=== PATIENT | female | born 1940 | race Caucasian/White ===

== ENCOUNTER 2023-06-01 12:31 | Outpatient (CLI) | payer MEDICARE, BC, SELFPAY | END 2023-06-01 12:32 | disposition home or self-care (01) | LOC: NFLDREF 06-03 14:40 | PROVIDERS: Visit Provider Physician Assistant | DX: R30.0 Dysuria (principal); N39.0 Urinary tract infection, site not specified | CPT/HCPCS: 87086; 87186 ==

== ENCOUNTER 2024-12-26 14:15 | Outpatient (CLI) | payer MEDICARE, BC, SELFPAY | END 2024-12-26 14:16 | disposition home or self-care (01) | PROVIDERS: PCP Physician Assistant Medical; Visit Provider Physician Assistant Medical | DX: E78.5 Hyperlipidemia, unspecified (principal); E03.9 Hypothyroidism, unspecified | CPT/HCPCS: 80053; 80061; 84439; 84443 ==

== ENCOUNTER 2025-02-09 10:15 | Outpatient (RCR) | payer MEDICARE, BC, SELFPAY ==
--- NOTE | 2025-01-04 17:11 | PT.OPE ---
PT [facility] PT [facility] Eval Start: 01/04/25 11:48 Freq: Status: Active Protocol: Document 01/04/25 13:37 LSL (Rec: 01/04/25 14:47 LSL [id number]) E-signed By Dayna Hackett PT Physical Therapy Outpatient Evaluation Insurance Information Recert Due Date 04/04/25 Insurance Name Medicare B,Blue Cross/Blue Shield Medical Diagnosis R shoulder pain Treating Diagnosis impaired ROM, weakness, pain Imaging Report Information xray Findings: : Narrowing and spurring at the glenohumeral joint with subchondral reactive changes. Inferior pseudosubluxation of the humeral head in relation to the glenoid noted. No acute fracture. 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 Subjective Subjective Pt. reports she fell about 3 years ago and hurt her knee but not long after she began having R shoulder pain. She is right hand dominant. Pt. reports she has a constant ache in her R lateral shoulder . Pt. is unable to use her arm to brush her hair and has difficulty getting dressed and difficulty getting her seat belt on. She has tried tylenol , heat and ice in the past without relief. Pain Comments 7/10 best 9/10 worst Date of Last Physician Visit 12/29/24 Date of Next Physician Visit 01/05/25 Current Work Status Retired Precautions Therapy Limitations/Systems Review Other Medical Problem Objective Range of Motion AROM L R PROM flex 130 107 133 abd 154 52 83 IR (HBB) T6 lateral hip 63 ER 78 70 (not in full abducted position) 60 Strength L shoulder and elbow 4-5/5 R elbow 5/5, shoulder ER 4-/5 with pain, IR 5/5 (both with clunk), abduction 3-/5, supraspinatus 3/5, deltoid 3/5 , hor abd 4/5, hor add 3/5 with pain Palpation R bicep, pec and coracoid process tender, very tender in scalenes, UT, LS Posture Forward head and protracted scapulae Other/Pertinent Objective Cervical distraction and L LF feel good JOINT PLAY - gd 1 inferior glides and LAD increase pain in the R cervical area and posterior glides also reproduce some pain in the superior shoulder Assessment Assessment/Impression Pt. presents today with her granddaughter, who she is currently living with. She has a significant loss of abduction and rotation in her R shoulder with moderate weakness in abduction, ER and horizontal adduction. There is significant clunking in both active and passive ROM indicative of a severely arthritic joint that is lacking stability. She has an initial appointment with orthopedics tomorrow. Treatment will consist of manual therapy and therex to improve strength and ROM of the R shoulder. NM re-ed and modalities may be used to assist in her ability to complete therex. Primary Functional Limitations grooming, bathing, hooking seat belt, dressing, reaching, lifting, carrying Plan of Care Rehabilitation Potential Good Physical Therapy Goals SHORT TERM GOALS: (4 weeks) 1. Pt. able to participate in basic HEP. 2. Pt. to have PROM abduction to 100+ degrees. 3. Pt. able to reach L5-S1 in hand behind back. 4. Pt. to report pain 5/10 or less in daily activities. 5. Pt. able to tolerate bra straps on her shoulders. SENIOR CARE GOALS: (8+ weeks) 1. Pt. able to do grooming tasks with pain less than 3/10 . 2. Pt. able to hook her seat belt with ease. 3. Pt. able to lift an item out of the fridge with pain less than 3/10. Coordination/Communication With Referral Source Treatment Plan/Direct Interventions Electrical Stimulation,Joint Mobilization,Manual Therapy, Neuromuscular Re-ed, Therapeutic Exercises Frequency/Duration 1-2x/week 6-8 weeks Patient Will Be Discharged From Therapy Completion of LTG(s),Skills Plateau,Independent w/HEP, Independently Progressing Evaluation Billing Untimed Code Treatment Minutes 30 Complexity Low Certification Information Initial Certification Date 01/04/25 Ending Certification Date 04/04/25 Provider Signature Required Yes Provider Signature Shows Agreement With POC & Medical Necessity Physician NPI Number Write NPI# Here Physician Comment/Change : Physician Signature & Date Requested Please Sign/Date Here
== END 2025-04-12 15:40 | disposition home or self-care (01) ==
PROVIDERS: PCP Physician Assistant Medical; Visit Provider Physician Assistant Medical
DX: Z47.1 Aftercare following joint replacement surgery (principal); Z96.611 Presence of right artificial shoulder joint; M25.511 Pain in right shoulder; M25.551 Pain in right hip; Z51.89 Encounter for other specified aftercare
CPT/HCPCS: 97032; 97110; 97140; 97161

== ENCOUNTER 2025-02-24 12:38 | Outpatient (CLI) | payer MEDICARE, BC, SELFPAY ==
--- OUTSIDE RECORDS SUMMARY | 2025-02-25 00:17 | XMS_ITS | Encounter Summary ---
Author Organization [facility] Address [address] [place] [address] Care Team Providers Care Electrician Wiring Name Role Phone Eliana Malloy MD Primary Care Provider Encounter Details Date Type Department Care Team (Late st Contact Info) Description 02/02/2025 E-Visit [facility] Family Medicine [address] [place] [address] [place] [address] Social History Tobacco Use Types Packs/Day Years Used Date Smoking Tobacco: Never Passive Smoke Exposure: Never Smokeless Tobacco: Never Alcohol Use Standard Drinks/Week Comments Yes 0 (1 standard drink = 0.6 oz pur e alcohol) daily-2 glasses [facility] Utilities Answer Date Recorded In the past 12 months has Epuls, gas, oil, or water [employer] threatened to shut off services in your home? No 02/27/2024 Humiliation, Afraid, Rape, and Kick questionnair e Answer Date Recorded Fear of Current or Ex-Partner Not on file Within the last year, have y ou been humiliated or emotionally abused in other ways by your partner or ex-partner? No 02/27/2024 Within the last year, have y ou been kicked, hit, slapped, or otherwise physically hurt by your partner or ex-partner? No 02/27/2024 Within the last year, have y ou been raped or forced to have any kind of sexual activity by your partner or ex-partner? No 02/27/2024 AUDIT-C Answer Date Recorded Q1: How often do you have a drink containing alc ohol? 2-4 times a month 06/13/2021 Q2: How many drinks containi ng alcohol do you have on a typical day when you are drinking? 1 or 2 06/13/2021 Q3: How often do you have si x or more drinks on one occasion? Never 06/13/2021 PHQ-2 Answer Date Recorded PHQ-2 Score 3 10/19/2023 Exercise Vital Sign Answer Date Recorde d On average, how many days pe r week do you engage in moderate to strenuous exercise (like a brisk walk)? 0 days 06/13/2021 On average, how many minutes do you engage in exercise at this level? 0 min 06/13/2021 Hunger Vital Sign Answer Date Recorded Within the past 12 months, y ou worried that your food would run out before you got the money to buy more. Never true 02/27/20 24 Within the past 12 months, t he food you bought just didn't last and you didn't have money to get more. Never true 02/27/2024 PRAPARE - Transportation Answer Date Re corded In the past 12 months, has l ack of transportation kept you from medical appointments or from getting medications? No 02/06 In the past 12 months, has l ack of transportation kept you from meetings, work, or from getting things needed for daily living? No 02/27/2024 Housing Stability Vital Sign Answer Florentin e Recorded In the last 12 months, was t here a time when you were not able to pay the mortgage or rent on time? No 02/27/2024 In the last 12 months, how many places have you lived? 1 02/27/2024 In the last 12 months, was t here a time when you did not have a steady place to sleep or slept in a detention (including now)? 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
--- OUTSIDE RECORDS SUMMARY | 2025-02-25 00:17 | XMS_ITS | Encounter Summary ---
Author Organization [facility] Address [address] [place] [address] Care Team Providers Care Educational Guidance Counselor Name Role Phone Eliana Malloy MD Primary Care Provider Encounter Details Date Type Department Care Team (Late st Contact Info) Description 05/08/2021 Stock Patcher Only CONVERSION CONVERSION Guicho Leiva MD CONV OF DATA PN TO [facility] Social History Tobacco Use Types Packs/Day Years Used Date Smoking Tobacco: Never Smokeless Tobacco: Never Alcohol Use Standard Drinks/Week Comments Yes 0 (1 standard drink = 0.6 oz pur e alcohol) daily-2 glasses Comments No Sex and Gender Information Value Date Recorded Sex Assigned at Female 02/28/2024 5:18 AM CDT 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 Location: Left;Hip [REMOVED] Peripheral IV Catheter 10/08/17 Left;Outer forearm Removal Date/Time: (c) 01/16/21 0720 Placement Date/Time: 10/08/17 0235 Line site: Left;Outer forearm Line Size: 22 gauge Catheter length: Standard Dressing/Device: Transparent [REMOVED] Incision Right Hip 10/07/17 Resolved/Resolved time: 10/16/17 1733 Date of Incision/Time first assessed: 10/07/17 1121 Lateraility: Right Incision location: Hip [REMOVED] Indwelling Urethral Catheter 10/07/17 Removal Date/Time: 10/08/17 1348 Placement Date/Time: 10/07/17 1052 Reason for urinary catheter insertion: Large volume infusions during surgery / diuretics first 24 hours after surgery Type: Non-latex Size (portuguese): 16 Fr Balloon size: 10 ml A... [REMOVED] Peripheral IV Catheter 10/07/17 Left;Hand Removal Date/Time: 10/08/17 0230 Placement Date/Time: 10/07/17 0956 Line site: Left;Hand Line Size:20 gauge Catheter length: Standard Dressing/Device: Transparent Local anesthetic: Injectible Reasonfor removal: Removed by patient Removal as... documented in this encounter Plan of Treatment Not on file documented as of this encounter Visit Diagnoses Not on filedocumented in this encounter Additional Health Concerns Infection Onset Date Last Indicated Resolved Time R/O COVID19 07/09/2021 07/09/2021 07/09/2021 8:09 PM CDT documented as of this encounter Care Teams Educational Guidance Counselor Relationship Specialty Start Date End Date Eliana Malloy MD [address] [place] [id number] PCP - General Family Practice 02/03/23 documented as of this encounter
--- OUTSIDE RECORDS SUMMARY | 2025-02-25 00:17 | XMS_ITS | Clinical Summary ---
Author Organization [facility] Address [address] [place] [address] Care Team Providers Care Clinical Trials Specialist Name Role Phone Eliana Malloy MD Primary Care Provider Source Comments You are receiving this document as you are listed as the primary care provider,follow-up provider, or the patient has been referred to you for consultation.This is in compliance with the Medicare and[facility] EHR Incentive Program,which states Providers who transition their patient to another setting of careor provider of care or refers their patient to another provider of care shouldprovide summary care record for each transition of care or referral. [facility] Allergies No known active allergies Medications cyanocobalamin (VITAMIN B12) 1000 MCG tabletIndications: Vitamin B12 Deficiency Take 1 Tablet (1,000 mcg) by mouth daily. Indications: Inadequate Vitamin B12 90 Tablet 1 4 Active escitalopram (LEXAPRO) 10 MG tablet Take 1 Tablet (10 mg) by mouth daily. 30 Tablet 5 Active levothyroxine (SYNTHROID) 125 MCG tablet Take 1 Tablet (125 mcg) by mouth daily. 30 Tablet 5 Active rosuvastatin (CRESTOR) 10 MG tabletIndications: Hyperlipidemia, unspecified hyperlipidemia type (HRC) Take 1 Tablet (10 mg) by mouth daily. 30 Tablet Active Hospital, Clinic, or Other Facility Administered Medication Ordered Dose Route Frequency Start Date End Date Status cyanocobalamin ([id number]) injection 1,000 mcgIndications:Vitamin B12 deficiency (HRC) 1000 mcg IM MONTHLY 03/08/2024 02/07/2025 Ended Active Problems Problem Noted Date Diagnosed Date Vitamin B12 deficiency 02/29/2024 Moderate dementia without be havioral disturbance, psychotic disturbance, mood disturbance, or anxiety 02/29/2024 General weakness 02/27/2024 Metabolic encephalopathy 02/27/2024 Closed fracture of right tibial plateau 07/09/20 21 Fall 07/09/2021 Leucocytosis 07/09/2021 H/O total hip arthroplasty, left 01/19/2021 Arthritis of left hip 01/16/2021 Perleche 10/29/2018 Status post total hip replacement, right 018 Arthritis of right hip 10/07/2017 Reactive depression 09/10/2017 Hyperlipidemia 09/10/2017 Pernicious anemia 07/09/2016 Acquired hypothyroidism 06/17/2016 Depression Hypothyroidism B12 deficiency anemia Resolved Problems Problem Noted Date Diagnosed Date Resolved Date Acute respiratory failure with hypoxia 02/27/2024 02/28/2024 UTI (urinary tract infection) 07/09/2021 01/07/2022 Dehydration 07/09/2021 01/07/2022 Encounters Date Type Department Care Team Description 02/02/2025 E-Visit [facility] [address] [facility] [place] [id number] Mychart, Generic Provider 12/15/2024 3:00 PM CDT E-Visit [facility] [address] [facility] [place] [phone] Eliana Malloy MD Dx: Hyperlipidemia, unspecified hyperlipidemia type (HRC) from Last 3 Months Immunizations Immunization Administration Dates Next Due Flu Vac (3+ yrs) 06/14/2013,09/16/2012, 8 Flu Vac Preserv Free (3+yrs) 07/18/2011,05/23/20 10 [id number] 09/20/2009 Influenza ([place] Only) (Flul aval Quad 0.5, 3+ yrs) 05/31/2014 Influenza IIV3 (Trivalent) F nati Highdose, 65+ Yrs (90908) 07/21/2019,06/25/2018 Influenza IIV4 (Quadrivalent ) 0.5mL (30538) 07/18/2015,05/31/2014 Influenza IIV4 (Quadrivalent ) Fluad, 65+ Yrs 06/13/2021,07/09/2020 Influenza IIV4 (Quadrivalent ) Fluzone, 65+ Yrs 07/21/2019,06/25/2018 Influenza ccIIV3 6 months+ (Flucelvax) 07/09/2020,07/18/2015 PCV13 (Prevnar) 01/18/2015 PPSV23 (Pneumovax) 01/18/2009,09/07/2008, 005 Pfizer Monovalent 12+ Purple Top 021,11/22/2020,11/22/2020,2020,11/01/2020 Td 03/24/2014,12/17/2001 Td, Preservative Free 03/24/2014,12/17/2001 Tdap 09/14/2023 Zoster (Zostavax) 01/18/2009,09/07/2008 Family History Medical History Relation Name Comments Alcohol Abuse Father Cancer, Colon Father Other Father Tobacco abuse Stroke Father Mental Disorder Mother anxious Other Mother pulmonary disea se Cancer, Prostate Brother 2 No Known Problems Daughter 2 Crohn's Disease Sister 2 Liver Disease Son 2 cirrhosis Kidney Disorder Son 3 Relation Name Status Comments Father Mother Brother 1 Alive Brother 2 Daughter 1 Alive Daughter 2 Maternal Grandfather Maternal Grandmother Paternal Grandfather Paternal Grandmother Sister 1 Alive Sister 2 Son 1 Son 2 Son 3 Social History Tobacco Use Types Packs/Day Years Used Date Smoking Tobacco: Never Passive Smoke Exposure: Never Smokeless Tobacco: Never Tobacco Cessation:Counseling Given: Not Answered Alcohol Use Standard Drinks/Week Comments Yes 0 (1 standard drink = 0.6 oz pur e alcohol) daily-2 glasses Nextt Utilities Answer Date Recorded In the past 12 months has e electric, gas, oil, or water company threatened to shut off services in your [...] place to sleep or slept in a alf (including now)? 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 Gender Identity Female 02/28/2024 5:18 AM CDT Sexual Orientation Not on file Last Filed Vital Signs Vital Sign Reading Time Taken Comments Blood Pressure 128/70 03/08/2024 10:49 AM CDT Pulse 83 03/08/2024 10:49 AM CDT Temperature 36.4 C (97.5 F) 03/08/2024 10:49 AM CDT Respiratory Rate 16 03/01/2024 7:00 AM CDT Oxygen Saturation 100% 03/08/2024 10:49 AM CDT Inhaled Oxygen Concentration - - Weight 73.5 kg (162 lb) 03/08/2024 10:49 AM CDT Height 162.6 cm (5' 4) 02/29/2024 2:05 PM CDT Body Mass Index 27.81 02/29/2024 2:05 PM CDT Plan of Treatment Health Maintenance Due Date Last Done Comments Zoster/Shingles Vaccine (2 of 3) 03/15/2009 01/18/2009, 09/07/2008 RSV Vaccine (1 - 1-dose 75+ series) 2014 Colonoscopy 01/28/2015 01/29/2012 (Completed) COVID-19 Vaccine ( season) 2024 07/24/2021, 11/22/2020, 11/22/2020, Additional history exists Medicare Annual Wellness Visit 09/14/2024 09/14/2023, 05/07/2020 Influenza Vaccine (Season Ended) 2025 06/13/2021, 07/09/2020, 07/09/2020, Additional history exists Dexa 09/14/2025 09/14/2023, 04/2024, 01/21/2011, Additional history exists DTaP/Tdap/Td Vaccine (2 - Tdap) 09/14/2033 09/14/2023, 03/24/2014, 03/24/2014, Additional history exists Pneumococcal Vaccine 50+ Yrs Completed , 01/18/2009, 09/07/2008, Additional history exists HepA Vaccine Aged Out No longer eligi ble based on patient's age to complete this topic HepB Vaccine Aged Out No longer eligi ble based on patient's age to complete this topic Hib Vaccine Aged Out No longer eligi ble based on patient's age to complete this topic MCV4 Vaccine Aged Out No longer eligi ble based on patient's age to complete this topic Meningococcal B Vaccine Aged Out No l onger eligible based on patient's age to complete this topic Medical Devices Implanted Type Area Information Systems Specialist Device Identifier Shelf Expiration Date Model / Serial / Lot Etex Beta-Bsm 5c #[id number] Implanted:Qty : 1 on 07/17/2021 by Christiano Prieto MD at [facility] DEVICE Right: KNEE Etex Umm 02/01/2023 [id number] / NA / [id number] Scr Cole Canc 4.0x70 P-Thrd - [id number] Implanted:Qty : 3 on 07/17/2021 by Christiano Prieto MD at [facility] DEVICE Right: KNEE [employer] - Trauma [id number] / / Scr Cole Canc 4.0x65 P-Thrd - [id number] Implanted:Qty : 1 on 07/17/2021 by Christiano Prieto MD at [facility] DEVICE Right: KNEE [employer] - Trauma [id number] / / Drill Bit Cole 2.9x70 Disp - [id number] Implanted:Qty : 1 on 07/17/2021 by Christiano Prieto MD at [facility] DEVICE Right: K[employer] - Trauma [id number] / / Etex Gamma-Bsm 2.5cc #[id number] Implanted:Qty : 2 on 07/17/2021 by Christiano Prieto MD at [facility] Right: KNEE Etex Umm 11/17/2023 [id number] / / [id number] Procedures Procedure Name Priority Date/Time Associated Diagnosis Comments DXA BONE DENSITY SPINE/HIP Routine 09/14/2023 12:18 PM SHOP SUPERVISOR Annual physical exam Screening for osteoporosis Postmenopausal from Last 3 Months or Most Recently Relevant to Health Maintenance Results * DXA Bone Density Spine/Hip (09/14/2023 12:18 PM SHOP SUPERVISOR) DXA Lumbar Spine Bone Mineral Density 1.183 gm/cm2 EXTERNAL RESULTS DXA Lumbar Spine T-Score 0.1 EXTERNAL RESULTS DXA Lumbar Spine Z-Score 1.4 EXTERNAL RESULTS DXA Forearm Bone Mineral Density 0.327 gm/cm2 EXTERNAL RESULTS DXA Forearm T-Score -5.4 EXTERNAL RESULTS DXA Forearm Z-Score -2.2 EXTERNAL RESULTS Anatomical Region Laterality Modality Lower Extremity, Spine, Hip, L-Spine Other Narrative 09/17/2023 8:44 AM SHOP SUPERVISOR Table formatting from the original result was not included. Patient Name: Lesley Newell Densitometer: [employer] DF Appt Dept/Resource: [place] Bone Density [place] DXA Demographics Age: 83 y.o. Gender: Female Height: 5' 4 (1.626 m) Height at age 24: 5'5 Weight: 185 lb (83.9 kg) Race: Medical/Surgical History Menstrual periods: None Age of menopause: 44 Able to stand from a chair easily without use of the arms?: Yes, easily How many falls indoors/outdoors within the last 12 months?: 0 History of fractures in parents: Hip History of previous fractures?: No Hip replacement?: Yes - Right Oral cortisone or steroid medication for more than 3 months?: No Currently or have taken medications to treat osteoporosis?: No Taking any aromatase inhibitor medication for breast cancer - anti-estrogen excluding tamoxifen?: No Have had the following medical conditions: None Dietary/Habit Alcohol 3 units or more per day on average?: No Currently smoking tobacco? No Daily servings of calcium rich food: 1 Do you take a daily calcium supplement?: No Dual-X-ray Absorptiometry (DXA) Results Skeletal Site BMD (gm/cm2) T-Score Z-Score % Change from Previous Scan dated: N/A Spine (L1, L2, L3) 1.183 0.1 1.4 N/A Left Hip (Total) N/A N/A N/A N/A Left Hip (Femoral neck) N/A N/A N/A N/A Right Hip (Total) N/A N/A N/A N/A Right Hip (Femoral neck) N/A N/A N/A N/A Forearm (1/3) (Left) 0.327 -5.4 -2.2 N/A *N/A indicates that measurements were either not needed or not valid Comments: *This is a baseline study at this center (no comparison) Diagnosis: *Osteoporosis *Fracture risk is moderate Recommendations:. 1. Optimize calcium and vitamin D intake 2. A work-up for secondary causes of bone fragility is indicated if not previously done 3. Consider pharmacologic fracture prevention therapy 4. Repeat DXA in 2 years Changes of spine and total hip bone density = 0.03 g/cm2 are beyond densitometer precision error and generally are considered significant when the current and prior studies were done on the same densitometer. FRAX Explanation: The 10 year risks of hip and major osteoporotic fractures (clinical spine, forearm, hip or shoulder fracture) are calculated by the FRAX algorithm based on femoral neck bone density, age, gender, race/ethnicity, weight, height, previous fracture, parental hip fracture, smoking status, glucocorticoid intake, history of RA, secondary osteoporosis, and high alcohol consumption. FRAX fracture risk estimates are adjusted for Trabecular Bone Score (TBS) when available. Trabecular Bone Score (TBS) is a measure of the microarchitectural integrity of trabecular bone, and is derived from the [id number] changes of bone density embedded in the AP spine BMD image. TBS is only modestly correlated with BMD, and is modestly associated with incident major osteoporotic and hip fractures independent of BMD and other risk factors. FRAX Fracture Risk Categories in terms of major osteoporotic fractures: < 10% = low fracture risk = 10% and <15% = mildly increased fracture risk = 15% and <20% = moderately increased fracture risk = 20% and <30% = high fracture risk = 30% = very high fracture risk National Osteoporosis Foundation Treatment Guideline A clinician may consider FDA-approved medical therapies in postmenopausal women and men aged 50 years and older, if one or more of the following is present (clinical correlation required and therapy may not always be indicated): The patient has a hip or vertebral fracture. T-score = -2.5 at the femoral neck, hip, or spine after appropriate evaluation to exclude secondary causes. Low bone mass (T-score between -1.0 and -2.5 at the femoral neck, hip or spine) and a 10-year probability of a hip fracture = 3% or a 10-year probability of a major osteoporosis-related fracture = 20% based on the FRAX scores. Angy Caruso APRN, REFERRAL RN RAD DEXA Final Result from Last 3 Months or Most Recently Relevant to Health Maintenance Insurance MEDICARE [facility] MEDIC[facility] SUPPLEMENT MEDICARE [facility] MEDICARE SUPPLEMENT MEDICARE [facility] MEDIC[facility] SUPPLEMENT Advance Directives Documents on File Type Date Recorded Patient Neon Technician Expl anation HEALTHCARE DIRECTIVE 01/05/2017 [facility] are Directive-S * Do Not Attempt Resuscitation if Pulseless and Apneic, Do Not Intubate for Respiratory Deterioration(Latest Code Status on File) Date Activated Date Inactivated Comments 02/27/2024 7:05 PM 03/01/2024 2:56 PM Question Answer Comments See below for Life Sustainin g Treatment Orders IF pulse and breathing are present: See below Intubation for respiratory deterioration? No BiPAP for respiratory deterioration? Unaddressed /Yes Vasopressors for hypotension? Unaddressed/Yes Cardioversion for unstable rhythm? Unaddressed/Y es * Do Not Attempt Resuscitation if Pulseless and Apneic, Do Not Intubate for Respiratory Deterioration Date Activated Date Inactivated Comments 07/20/2021 12:13 PM 07/24/2021 3:33 PM Question Answer Comments See below for Life Sustainin g Treatment Orders IF pulse and breathing are present: See below Intubation for respiratory deterioration? No BiPAP for respiratory deterioration? Unaddressed /Yes Vasopressors for hypotension? Unaddressed/Yes Cardioversion for unstable rhythm? Unaddressed/Y es * Do Not Attempt Resuscitation if Pulseless and Apneic, Do Not Intubate for Respiratory Deterioration Date Activated Date Inactivated Comments 07/17/2021 7:24 PM 07/20/2021 12:08 PM Question Answer Comments See below for Life Sustainin g Treatment Orders IF pulse and breathing are present: See below Intubation for respiratory deterioration? No BiPAP for respiratory deterioration? Unaddressed /Yes Vasopressors for hypotension? Unaddressed/Yes Cardioversion for unstable rhythm? Unaddressed/Y es * Full Code Date Activated Date Inactivated Comments 07/17/2021 5:48 PM 07/17/2021 7:24 PM * Do Not Attempt Resuscitation if Pulseless and Apneic, Do Not Intubate for Respiratory Deterioration Date Activated Date Inactivated Comments 07/12/2021 10:15 AM 07/17/2021 2:16 PM Question Answer Comments See below for Life Sustainin g Treatment Orders IF pulse and breathing are present: See below Intubation for respiratory deterioration? No BiPAP for respiratory deterioration? Unaddressed /Yes Vasopressors for hypotension? Unaddressed/Yes Cardioversion for unstable rhythm? Unaddressed/Y es Care Teams Clinical Trials Specialist Relationship Specialty Start Date End Date Eliana Malloy MD [address] [place] [address] PCP - General Family Practice 02/03/23
--- OUTSIDE RECORDS SUMMARY | 2025-02-25 00:17 | XMS_ITS | Encounter Summary ---
Author Organization [facility] Address [address] [place] [address] Care Team Providers Care Legal Assistant Name Role Phone Eliana Malloy MD Primary Care Provider Encounter Details Date Type Department Care Team (Latest Contact Info) Description 01/12/2021 Lab Requisition [facility] [address] [place] [address] Christiano Prieto MD [address] [place] [address] Encounter for other preprocedural examination Social History Tobacco Use Types Packs/Day Years Used Date Smoking Tobacco: Never Assessed Comments No Sex and Gender Information Value Date Recorded Sex Assigned at Female 02/28/2024 5:18 AM CDT Legal 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 Gender Identity Female 02/28/2024 5:18 AM CDT Sexual Orientation Not on file documented as of this encounter Plan of Treatment Not on file documented as of this encounter Procedures Procedure Name Priority Date/Time Associated Diagnosis Comments 2019 NOVEL CORONAVIRUS Routine 01/12/2021 9:35 AM CDT Encounter for other preprocedural examination documented in this encounter Results * COVID-19 (ROUTINE)-choose patient type (01/12/2021 9:35 AM CDT) COVID-19 Interpretation Not Detected Not Detected 01/13/2021 1:25 AM CDT [facility] Swab (Source Required) Non-blood Collection / Unknown 01/12/2021 9:35 AM CDT 01/12/2021 3:35 PM CDT [facility] - 01/13/2021 1:25 AM CDT Test performed by real-time PCR. This test has been authorized by the FDA under an Emergency Use Authorization (EUA) for use by authorized laboratories. us Christiano Prieto MD LAB_1 Final Result [facility] [address] [address] [place] [address] documented in this encounter Visit Diagnoses Diagnosis Encounter for other preprocedural examination documented in this encounter Additional Health Concerns Infection Onset Date Last Indicated Resolved Time R/O COVID19 07/09/2021 07/09/2021 07/09/2021 8:09 PM CDT documented as of this encounter Care Teams Legal Assistant Relationship Specialty Start Date End Date Eliana Malloy MD [address] [place] [address] PCP - General Family Practice 02/03/23 documented as of this encounter
== END 2025-02-24 12:39 | disposition home or self-care (01) ==
LOC: CT 12:39
PROVIDERS: PCP Physician Assistant Medical; Visit Provider Orthopaedic Surgery Sports Medicine
DX: M19.011 Primary osteoarthritis, right shoulder (principal); Z01.818 Encounter for other preprocedural examination
CPT/HCPCS: 73200

== ENCOUNTER 2025-03-07 16:03 | Outpatient (CLI) | payer MEDICARE, BC, SELFPAY | END 2025-03-07 16:04 | disposition home or self-care (01) | LOC: NFLDREF 03-11 10:45 | PROVIDERS: PCP Physician Assistant Medical; Referring Provider Physician Assistant Medical | DX: N30.01 Acute cystitis with hematuria (principal) | CPT/HCPCS: 87086 ==

== ENCOUNTER 2025-03-15 11:32 | Outpatient (CLI) | payer MEDICARE, BC, SELFPAY | END 2025-03-15 11:33 | disposition home or self-care (01) | PROVIDERS: PCP Physician Assistant Medical; Visit Provider Physician Assistant Medical | DX: E03.9 Hypothyroidism, unspecified (principal); E53.8 Deficiency of other specified B group vitamins; E78.5 Hyperlipidemia, unspecified; M81.0 Age-related osteoporosis without current pathological fracture; R82.90 Unspecified abnormal findings in urine; Z01.818 Encounter for other preprocedural examination | CPT/HCPCS: 80076; 82607; 84439; 84443; 87086 ==

== ENCOUNTER 2025-04-10 11:05 | Outpatient (CLI) | payer MEDICARE, BC, SELFPAY | END 2025-04-10 11:06 | disposition home or self-care (01) | PROVIDERS: PCP Physician Assistant Medical; Visit Provider Physician Assistant Medical | DX: E03.9 Hypothyroidism, unspecified (principal); E53.8 Deficiency of other specified B group vitamins; M81.0 Age-related osteoporosis without current pathological fracture | CPT/HCPCS: 82306; 82607; 84443 ==

== ENCOUNTER 2025-07-12 11:09 | Outpatient (CLI) | payer MEDICARE, BC, SELFPAY | END 2025-07-12 11:10 | disposition home or self-care (01) | PROVIDERS: PCP Physician Assistant Medical; Visit Provider Physician Assistant Medical | DX: E03.9 Hypothyroidism, unspecified (principal); E53.8 Deficiency of other specified B group vitamins; E55.9 Vitamin D deficiency, unspecified | CPT/HCPCS: 82306; 82607; 84443 ==